=== PATIENT | female | born 1945 | race Caucasian/White ===

== ENCOUNTER → 2017-12-04 10:23 | Outpatient (CLI) | payer MEDICARE, SELFPAY ==
[2017-12-04 11:03] LABS: Add Manual Diff / Slide Review NO; Basophils Percent Auto 1.1 % (0-2); Eosinophils Percent Auto 2.1 % (2-4); Hematocrit 40.4 % (36-46); Hemoglobin 13.7 g/dL (12.0-16.0); Lymphocytes Percent Auto 42.3 % (25-40); Mean Corpuscular HGB Conc 33.9 % (30-36); Mean Corpuscular Hemoglobin 32.2 PG (26-34); Neutrophils Absolute Auto 1700 /uL (3000-5900); Neutrophils Percent Auto 46.5 % (50-75); Platelet Count 228 X10^3/uL (150-400); Red Blood Cell Count 4.26 X10^6/uL (4.0-5.2); Red Cell Distribution Width 14.7 % (11.6-14.8); White Blood Cell Count 3.7 X10^3/uL (4.5-11.0)
[2017-12-04 11:35] LABS: Alanine Aminotransferase 86 IU/L (9-52); Albumin 4.9 g/dL (3.5-5.0); Albumin Globulin Ratio 1.8 (1.0-2.8); Alkaline Phosphatase 66 U/L (38-126); Aspartate Aminotransferase 44 IU/L (14-36); BUN Creatinine Ratio 21.4 (6-22); Bilirubin Total 0.9 mg/dL (0.2-1.3); Blood Urea Nitrogen 15 mg/dL (7-17); Calcium 9.7 mg/dL (8.4-10.2); Carbon Dioxide 31 mmol/L (22-32); Chloride 105 mmol/L (98-107); Cholesterol 190 mg/dL (140-199); Estimated Glomerular Filt Rate > 60.0 mL/min (>60); Globulin 2.8 g/dL (1.7-4.1); Glucose 121 mg/dL (80-110); HDL Cholesterol 38 mg/dL (40-60); HEMOLYSIS 16 (0-50); LDL Cholesterol Calculated 93 mg/dL (<100); Potassium 4.9 mmol/L (3.4-5.1); Sodium 147 mmol/L (137-145); Total Protein 7.7 g/dL (6.3-8.2); Triglycerides 293 mg/dL (35-150)
[2017-12-04 11:49] LABS: Vitamin D 25 Hydroxy (D3) 72.7 ng/mL (30.0-100.0)
[2017-12-04 12:02] LABS: TSH w/ Reflex to FT4 1.86 uIU/mL (0.47-4.68)
== END ==
PROVIDERS: PCP Student in an Organized Health Care Education/Training Program; Visit Provider Student in an Organized Health Care Education/Training Program
DX: E55.9 Vitamin D deficiency, unspecified (principal); D70.4 Cyclic neutropenia; M35.9 Systemic involvement of connective tissue, unspecified; N39.0 Urinary tract infection, site not specified; E03.9 Hypothyroidism, unspecified; E78.5 Hyperlipidemia, unspecified
CPT/HCPCS: 36415; 80053; 80061; 82306; 84443; 85025

== ENCOUNTER → 2018-08-02 09:15 | Outpatient (CLI) | payer MEDICARE, SELFPAY ==
--- NOTE | 2018-08-02 09:18 | DI.MG.S_ITS ---
BILATERAL DIGITAL SCREENING MAMMOGRAM 3D/2D WITH CAD: 08/02/2018 CLINICAL: Routine screening. Family history of breast cancer. Comparison is made to exams dated: 12/16/2016 mammogram, 12/15/2015 mammogram, 12/26/2014 mammogram, 08/23/2013 mammogram, 08/17/2012 mammogram, and 08/04/2011 mammogram - [facility]. There are scattered fibroglandular elements in both breasts. Current study was also evaluated with a Computer Aided Detection (CAD) system. There is a 0.5 cm oval focal asymmetry in the lower inner right breast near 3 o'clock position anterior depth. There are bilateral secretory calcifications. There are circular mole markers overlying the right breast. No other significant masses, calcifications, or other findings are seen in either breast. IMPRESSION: INCOMPLETE: NEEDS ADDITIONAL IMAGING EVALUATION The 0.5 cm oval focal asymmetry in the lower inner right breast near 3 o'clock position anterior depth is indeterminate. Additional views with possible ultrasound are recommended. This exam was interpreted at Station ID: [id number]. NOTE: For mammograms, a report in lay terms will be sent to the patient. Approximately 15% of breast malignancies will not be visualized mammographically. In the management of a palpable breast mass, a negative mammogram must not discourage biopsy of a clinically suspicious lesion. Electronically Signed By: Toney Hurtado M.D. ecl/:08/02/2018 17:15:35 letter sent: Additional Imaging Needed ACR BI-RADS Category 0: Incomplete 3340F
== END ==
PROVIDERS: PCP Student in an Organized Health Care Education/Training Program; Visit Provider Student in an Organized Health Care Education/Training Program
DX: Z12.31 Encounter for screening mammogram for malignant neoplasm of breast (principal); Z80.3 Family history of malignant neoplasm of breast
CPT/HCPCS: 77063; 77067

== ENCOUNTER → 2018-08-22 12:49 | Outpatient (CLI) | payer MEDICARE, SELFPAY ==
--- NOTE | 2018-08-22 | DI.MG.S_ITS ---
UNILATERAL RIGHT DIGITAL DIAGNOSTIC MAMMOGRAM 3D/2D WITH ADDITIONAL VIEWS: 08/22/2018 CLINICAL: Additional evaluation requested from prior study. Comparison is made to exams dated: 08/02/2018 mammogram, 12/16/2016 mammogram, and 12/15/2015 mammogram - [facility]. There are scattered fibroglandular elements in right breast. There is 0.5 cm oval low density mass with a circumscribed margin in the right breast at 3 o'clock anterior depth. No other significant masses or calcifications are seen in the breast. IMPRESSION: INCOMPLETE: NEEDS ADDITIONAL IMAGING EVALUATION The 0.5 cm oval low density mass in the right breast is indeterminate. An ultrasound is recommended. This exam was interpreted at Station ID: [id number]. NOTE: For mammograms, a report in lay terms will be sent to the patient. Approximately 15% of breast malignancies will not be visualized mammographically. In the management of a palpable breast mass, a negative mammogram must not discourage biopsy of a clinically suspicious lesion. Electronically Signed By: Joce stewart/ivelisse:08/22/2018 13:35:33 ACR BI-RADS Category 0: Incomplete 3340F
--- NOTE | 2018-08-22 12:52 | DI.US.S_ITS ---
LIMITED ULTRASOUND OF RIGHT BREAST: 08/22/2018 CLINICAL: Patient returns today to evaluate a focal asymmetry in the right breast. Comparison is made to exams dated: 08/22/2018 mammogram, 08/02/2018 mammogram, 12/16/2016 mammogram, and 12/15/2015 mammogram - [facility]. Color flow and real-time ultrasound of the right breast 3 o'clock region were performed on the areas of interest. There is 0.4 cm x 0.4 cm x 0.4 cm oval mass with a circumscribed margin in the right breast at 3 o'clock middle depth. This oval mass is hypoechoic with a well-defined boundary. This correlates with mammography findings. Color flow imaging demonstrates that there is vascularity present. IMPRESSION: SUSPICIOUS OF MALIGNANCY The 0.4 cm x 0.4 cm x 0.4 cm oval mass in the right breast is at a low suspicion for malignancy. An ultrasound guided biopsy is recommended. The findings were discussed with the patient at the conclusion of the study by Dr. Ng. This exam was interpreted at Station ID: [id number]. Electronically Signed By: Joce stewart/:08/22/2018 17:19:46 letter sent: Biopsy Required Ultrasound BI-RADS: 4a Suspicious abnormality - low suspicion for malignancy
== END ==
PROVIDERS: PCP Student in an Organized Health Care Education/Training Program; Visit Provider Student in an Organized Health Care Education/Training Program
DX: R92.8 Other abnormal and inconclusive findings on diagnostic imaging of breast (principal); N63.10 Unspecified lump in the right breast, unspecified quadrant
CPT/HCPCS: 76642; 77065; G0279

== ENCOUNTER → 2018-09-12 13:09 | Outpatient (CLI) | payer MEDICARE, SELFPAY ==
--- NOTE | 2018-09-12 | DI.MG.S_ITS ---
UNILATERAL RIGHT DIGITAL DIAGNOSTIC MAMMOGRAM POST-NEEDLE BIOPSY: 09/12/2018 CLINICAL: Post right breast ultrasound biopsy clip placement imaging. Comparison is made to exams dated: 08/22/2018 mammogram and 08/02/2018 mammogram - [facility]. There are scattered fibroglandular elements in right breast. Post-biopsy marker on the right is in expected position. IMPRESSION: POST PROCEDURE MAMMOGRAM FOR MARKER PLACEMENT Vision marker clip in expected position on the right after US guided biopsy earlier today. This exam was interpreted at Station ID: [id number]. NOTE: For mammograms, a report in lay terms will be sent to the patient. Approximately 15% of breast malignancies will not be visualized mammographically. In the management of a palpable breast mass, a negative mammogram must not discourage biopsy of a clinically suspicious lesion. Electronically Signed By: Spike Ochoa M.D. [facility]/:09/17/2018 09:43:21 ACR BI-RADS Category Post-procedure mammogram for marker placement
--- NOTE | 2018-09-12 | PATH_ITS ---
[facility] Accession Number: [id number] . 01 Material submitted: . breast - RIGHT BREAST MASS 3:00 2 CM FN . 02 Diagnosis: Right Breast Mass at 3 o'clock, 2 cm from Nipple: Fragments of atypical papilloma; please see comment. . MRV/09/17/2018 . 02 Comment: Histologic sections demonstrate disrupted portions of papilloma with a minute focus (less than 0.5 mm, a small region of one ductule) of atypical ductal hyperplasia; surgical extirpation is recommended, if clinically appropriate. . This case was reviewed by my colleagues, Drs. Perez and Ella. . These results were discussed with Genaro, triage nurse, on 09/17/2018 at approximately 12:45 p.m. . 02 Electronically signed: . Rayna Varela MD, Pathologist NPI- [id number] . 01 Gross description: . Received one formalin-filled container labeled with the patient's name and designated right breast mass 3 o'clock 2 cm FN. The specimen is received with a plastic filter, sample loose in container. The specimen consists of multiple portions of tissue and blood which measure 2.0 x 0.6 x 0.3 cm in aggregate. All fragments are totally submitted in one cassette. Collection date: 09/12/2018. Collection time per container: 2:00 p.m. Total fixation time: 12 hours, up to 24. ([id number]) /FRR . 02 Microscopic: . Immunostains were performed on block A1 with the following results. Controls showed appropriate reactivity. . ER: Strong, uniform staining in region of interest. CK 5/6: Diminished to absent staining in region of interest. E-cadherin: Uniformly positive in region of interest. . The region of interest is immunopositive for both ER and E-cadherin and demonstrates diminished / absent staining for CK5/6. 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 . * This test was developed and its performance characteristics determined by [facility]. It has not been cleared or approved by the U.S. Food and Drug Administration. The FDA has determined that such clearance or approval is not necessary. This test is used for clinical purposes. It should not be regarded as investigational or for research. . 02 Pathologist provided ICD-10: D24.9 . 02 CPT . 875285, J80744, K21470 Performed at: 01 [facility] [address], [place], [place] [id number] MD Joce Glass MD Phone: [phone] Performed at: 02 [facility] [address] [place], [place] [id number] MD Jessica Jaramillo MD Phone: [phone]
--- NOTE | 2018-09-12 13:10 | DI.US.S_ITS ---
ULTRASOUND GUIDED BIOPSY RIGHT BREAST USING VACUUM DEVICE WITH MARKING DEVICE INSERTED AND POST DIGITAL MAMMOGRAPHIC AND ULTRASOUND IMAGIN09/12/2018 CLINICAL: Right breast mass. PATIENT CONSENT: Risks (minor bleeding, infection, vasovagal reaction and repeat procedure), benefits and alternatives were explained to the patient and written informed consent was obtained. Correlation is made to exams dated: 08/22/2018 ultrasound, 08/22/2018 mammogram, 08/02/2018 mammogram, 12/16/2016 mammogram, 12/15/2015 mammogram, and 12/26/2014 mammogram - [facility]. An ultrasound guided biopsy using real-time ultrasound was performed for the concerning 0.4 cm x 0.4 cm x 0.4 cm circumscribed round mass located in the right breast at 3 o'clock anterior depth. This was described on the previous ultrasound report. The skin was prepped in the usual manner. Local anesthetic was administered to the access site. A skin joann was made in the breast. The abnormality was approached from the lateral aspect. A 13 gauge biopsy needle was placed adjacent to the abnormality under ultrasound guidance. Once the needle was documented to be in the correct location, four specimens were obtained using the Mammotome biopsy system. The patient received additional local anesthetic during the procedure. A Vision clip was inserted into the biopsy cavity. A skin closure strip and a sterile dressing were applied to the access site. Post procedure digital mammographic and ultrasound imaging demonstrates the location device at the targeted area and partial removal of the abnormality. The specimens were sent to the laboratory for pathological analysis. IMPRESSION: ULTRASOUND GUIDED BIOPSY HIGH RISK BENIGN Ultrasound guided biopsy of the 0.4 cm x 0.4 cm x 0.4 cm mass in the right breast at 3 o'clock anterior depth was successful. 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 Pathology results are concordant with imaging findings. A surgical consultation and a surgical excision are recommended. This exam was interpreted at Station ID: [id number]. Spike Benito M.D. [facility]/:09/18/2018 11:03:05
== END ==
PROVIDERS: PCP Student in an Organized Health Care Education/Training Program; Visit Provider Student in an Organized Health Care Education/Training Program
DX: D24.1 Benign neoplasm of right breast (principal)
CPT/HCPCS: 19083; 77065; 88305; 88341; 88342

== ENCOUNTER → 2018-09-19 09:06 | Outpatient (CLI) | payer MEDICARE, SELFPAY ==
[2018-09-19 09:35] LABS: Bacteria Urine None Seen; RBC Urine None Seen (0-5/HPF)
[2018-09-19 09:52] LABS: Appearance Urine UA CLEAR; Bilirubin Urine UA NEGATIVE (NEGATIVE); Color Urine UA YELLOW; Glucose Urine UA NEGATIVE (Negative); Ketones Urine UA NEGATIVE (NEGATIVE); Leukocyte Esterase Urine UA 3+ (NEGATIVE); Nitrite Urine UA NEGATIVE (Negative); Occult Blood Urine UA NEGATIVE (Negative); Protein Urine UA NEGATIVE (Negative); Urobilinogen Urine UA 0.2 E.U./dL (0.2)
[2018-09-19 10:01] LABS: Culture Indicated Urine Specimen Cultured; WBC Urine 5-10/HPF (0-5/HPF)
== END ==
PROVIDERS: PCP Student in an Organized Health Care Education/Training Program; Visit Provider Student in an Organized Health Care Education/Training Program
DX: R30.0 Dysuria (principal)
CPT/HCPCS: 81001; 87086

== ENCOUNTER → 2018-10-26 09:01 | Outpatient (CLI) | payer MEDICARE, SELFPAY ==
[2018-10-26 09:34] LABS: Add Manual Diff / Slide Review NO; Basophils Absolute Auto 0 /uL (0-100); Basophils Percent Auto 1.1 % (0-2); Eosinophils Absolute Auto 100 /uL (0-450); Eosinophils Percent Auto 2.3 % (2-4); Hematocrit 38.3 % (36-46); Lymphocytes Absolute Auto 1900 /uL (1100-4500); Lymphocytes Percent Auto 47.8 % (25-40); Mean Corpuscular HGB Conc 33.8 % (30-36); Mean Corpuscular Hemoglobin 32.3 PG (26-34); Mean Corpuscular Volume 95.5 fL (80-100); Monocytes Absolute Auto 300 /uL (0-900); Monocytes Percent Auto 8.2 % (3-14); Neutrophils Absolute Auto 1600 /uL (1500-7000); Neutrophils Percent Auto 40.6 % (50-75); Platelet Count 232 X10^3/uL (150-400); Red Blood Cell Count 4.01 X10^6/uL (4.0-5.2); Red Cell Distribution Width 15.3 % (11.6-14.8); White Blood Cell Count 3.9 X10^3/uL (4.5-11.0)
[2018-10-26 10:04] LABS: Alanine Aminotransferase 69 IU/L (9-52); Albumin 4.5 g/dL (3.5-5.0); Albumin Globulin Ratio 1.7 (1.0-2.8); Alkaline Phosphatase 69 U/L (38-126); Aspartate Aminotransferase 30 IU/L (14-36); BUN Creatinine Ratio 26.7 (6-22); Bilirubin Total 0.8 mg/dL (0.2-1.3); Blood Urea Nitrogen 16 mg/dL (7-17); Calcium 9.6 mg/dL (8.4-10.2); Carbon Dioxide 27 mmol/L (22-32); Chloride 105 mmol/L (98-107); Estimated Glomerular Filt Rate > 60.0 mL/min (>60); Globulin 2.6 g/dL (1.7-4.1); Glucose 122 mg/dL (80-110); HEMOLYSIS < 15 (0-50); Potassium 4.7 mmol/L (3.4-5.1); Sodium 141 mmol/L (137-145); Total Protein 7.1 g/dL (6.3-8.2)
[2018-10-26 10:21] LABS: Vitamin D 25 Hydroxy (D3) 63.1 ng/mL (30.0-100.0)
[2018-10-26 10:35] LABS: TSH w/ Reflex to FT4 2.76 uIU/mL (0.47-4.68)
== END ==
PROVIDERS: Family Provider Student in an Organized Health Care Education/Training Program; PCP Student in an Organized Health Care Education/Training Program; Visit Provider Internal Medicine Hematology & Oncology
DX: D24.1 Benign neoplasm of right breast (principal); N60.91 Unspecified benign mammary dysplasia of right breast; E66.9 Obesity, unspecified; E78.5 Hyperlipidemia, unspecified; G35 Multiple sclerosis; I10 Essential (primary) hypertension; R94.5 Abnormal results of liver function studies; E03.9 Hypothyroidism, unspecified; E55.9 Vitamin D deficiency, unspecified
CPT/HCPCS: 36415; 80053; 82306; 84443; 85025

== ENCOUNTER → 2018-11-13 14:07 | Outpatient (CLI) | payer MEDICARE, SELFPAY ==
--- NOTE | 2018-11-13 | DI.US.S_ITS ---
PROCEDURE: US RENAL COMPLETE INDICATIONS: NEUROGENIC BLADDER TECHNIQUE: Real-time scanning was performed of the kidneys and bladder, with image documentation. COMPARISON: [facility], , PELVIC COMPLETE, 02/19/2008, 10:32. FINDINGS: Kidneys: Kidneys are normal in size. Right kidney measures 10.8 cm long; left kidney measures 11.5 cm long. Right renal cortical thickness is 2.0 cm; left renal cortical thickness is 2.1 cm. Renal cortical echotexture is normal. No hydronephrosis or nephrolithiasis. No suspicious solid mass lesions. Bladder: Pre-void bladder volume is 162 mL. Post-void residual is 80 mL. Pre-void images demonstrate no intraluminal masses or stones. On pre-void images, neither ureteral jets are noted with color Doppler interrogation. (Of note, ureteral jets may not be detectable in up to 25% of cases due to insufficient differences in specific gravity between ureteral and bladder urine). Miscellaneous: No free pelvic fluid. IMPRESSION: 1. Grossly normal appearance of the kidneys. 2. 80 cc post void residual. Dictated by: Sam MC Interpreted: Eliz Ayon MD on 11/13/2018 at 15:27 Approved by: Eliz Ayon M.D. on 11/13/2018 at 15:59
== END ==
PROVIDERS: PCP Student in an Organized Health Care Education/Training Program; Visit Provider Urology
DX: N31.9 Neuromuscular dysfunction of bladder, unspecified (principal)
CPT/HCPCS: 76770

== ENCOUNTER → 2019-09-18 12:55 | Outpatient (CLI) | payer MEDICARE, SELFPAY ==
[2019-10-31 09:32] LABS: BUN Creatinine Ratio 23.5 (6-22); Blood Urea Nitrogen 12 mg/dL (7-17); Calcium 9.4 mg/dL (8.4-10.2); Carbon Dioxide 22 mmol/L (22-32); Chloride 109 mmol/L (98-107); Estimated Glomerular Filt Rate > 60.0 mL/min (>60); Glucose 124 mg/dL (80-110); HEMOLYSIS 24 (0-50); Potassium 4.7 mmol/L (3.4-5.1); Sodium 139 mmol/L (137-145)
[2019-10-31 10:02] LABS: TSH w/ Reflex to FT4 3.37 uIU/mL (0.47-4.68)
== END ==
PROVIDERS: PCP Student in an Organized Health Care Education/Training Program; Referring Provider Student in an Organized Health Care Education/Training Program; Visit Provider Student in an Organized Health Care Education/Training Program
DX: N39.0 Urinary tract infection, site not specified (principal)
CPT/HCPCS: 80048; 84443; 87077; 87086; 87186

== ENCOUNTER → 2019-12-19 15:33 | Outpatient (CLI) | payer MEDICARE, SELFPAY ==
--- NOTE | 2019-12-19 15:36 | DI.RAD.S_ITS ---
PROCEDURE: XR ABDOMEN 1V INDICATIONS: Abdominal bloating TECHNIQUE: One view of the abdomen acquired. COMPARISON: [facility], CT, ABDOMEN/PELVIS WITH CONTRAST, 06/30/2016, 15:31. [facility], CR, ABDOMEN ACUTE SERIES, 06/30/2016, 12:00. [facility], CR, ABDOMEN 1 VIEW, 07/08/2016, 6:05. FINDINGS: Surgical changes and devices: None. Bowel: There is persistent gaseous distention of much of the colon, predominantly within the upper abdomen where the colon measures up to 10.5 cm with air seen in the colon down to the level of the sigmoid where no definitive gas filled bowel seen. No definite small bowel dilatation is seen. No pneumatosis or bowel wall thickening. Soft tissues: No suspicious abdominal calcifications. Visualized solid organ contours appear normal in size. Bones: No suspicious bony lesions. IMPRESSION: Persistent gaseous distension of the colon to the level of the sigmoid where no definitive gas is seen. Sigmoid stricture cannot entirely be excluded. If indicated, CT could be performed for further assessment. Dictated by: Sam RODRIGUEZ Interpreted: Spike Ochoa MD on 12/19/2019 at 17:00 Approved by: Spike Ochoa M.D. on 12/20/2019 at 9:41
== END ==
PROVIDERS: PCP Student in an Organized Health Care Education/Training Program; Referring Provider Student in an Organized Health Care Education/Training Program; Visit Provider Student in an Organized Health Care Education/Training Program
DX: R14.0 Abdominal distension (gaseous) (principal)
CPT/HCPCS: 74018

== ENCOUNTER → 2020-03-27 10:14 | Outpatient (CLI) | payer MEDICARE, OTHER, SELFPAY ==
--- NOTE | 2020-03-27 | DI.MG.S_ITS ---
BILATERAL DIGITAL SCREENING MAMMOGRAM 3D/2D WITH CAD: 03/27/2020 CLINICAL: Routine screening. Family history of breast cancer. Comparison is made to exams dated: 08/22/2018 mammogram, 08/02/2018 mammogram, and 12/16/2016 mammogram - [facility]. There are scattered fibroglandular elements in both breasts. Current study was also evaluated with a Computer Aided Detection (CAD) system. There are benign calcifications in both breasts. There also are benign post operative findings in the right breast. No significant masses, calcifications, or other findings are seen in either breast. There has been no significant interval change. IMPRESSION: BENIGN There is no mammographic evidence of malignancy. A 1 year screening mammogram is recommended. This exam was interpreted at Station ID: [id number]. NOTE: For mammograms, a report in lay terms will be sent to the patient. Approximately 15% of breast malignancies will not be visualized mammographically. In the management of a palpable breast mass, a negative mammogram must not discourage biopsy of a clinically suspicious lesion. Electronically Signed By: Dorys mattson/ivelisse:03/30/2020 11:32:58 letter sent: Normal Exam ACR BI-RADS Category 2: Benign Finding(s) 3342F
== END ==
PROVIDERS: PCP Student in an Organized Health Care Education/Training Program; Referring Provider Student in an Organized Health Care Education/Training Program; Visit Provider Student in an Organized Health Care Education/Training Program
DX: Z12.31 Encounter for screening mammogram for malignant neoplasm of breast (principal); Z80.3 Family history of malignant neoplasm of breast
CPT/HCPCS: 77063; 77067

== ENCOUNTER → 2020-04-08 13:39 | Outpatient (CLI) | payer MEDICARE, OTHER, SELFPAY ==
[2020-04-08] MEDS: COVID-19 VACC #1, MRNA(MOD) 100 MCG/0.5 ML VIAL IM (13:45)
== END ==
PROVIDERS: PCP Student in an Organized Health Care Education/Training Program; Visit Provider Internal Medicine
DX: Z23 Encounter for immunization (principal)
CPT/HCPCS: 0011A; 91301

== ENCOUNTER → 2020-05-06 13:23 | Outpatient (CLI) | payer MEDICARE, OTHER, SELFPAY ==
[2020-05-06] MEDS: COVID-19 VACC #2, MRNA(MOD) 100 MCG/0.5 ML VIAL IM (13:31)
== END ==
PROVIDERS: PCP Student in an Organized Health Care Education/Training Program; Visit Provider Internal Medicine
DX: Z23 Encounter for immunization (principal)
CPT/HCPCS: 0012A; 91301

== ENCOUNTER → 2020-09-03 11:09 | Outpatient (ROUT) | payer MEDICARE, OTHER, SELFPAY ==
[2020-09-03 11:11] LABS: Bacteria Urine None Seen
[2020-09-03 11:26] LABS: Appearance Urine UA SL CLOUDY; Bilirubin Urine UA NEGATIVE (NEGATIVE); Color Urine UA YELLOW; Glucose Urine UA NEGATIVE (Negative); Ketones Urine UA NEGATIVE (NEGATIVE); Leukocyte Esterase Urine UA 1+ (NEGATIVE); Nitrite Urine UA NEGATIVE (Negative); Occult Blood Urine UA 3+ (Negative); Protein Urine UA 2+ (Negative); Specific Gravity Urine UA 1.015 (1.000-1.035); Urobilinogen Urine UA 0.2 E.U./dL (0.2)
[2020-09-03 11:44] LABS: Culture Indicated Urine Cult Not Indicated; RBC Urine 10-30/HPF (0-5/HPF); Renal Epithelial Cells Urine 5-10/HPF (0-1/HPF); Squamous Epithelial Cell Urine 5-10 /HPF (0-5/HPF); WBC Urine 5-10/HPF (0-5/HPF)
== END ==
PROVIDERS: PCP Student in an Organized Health Care Education/Training Program; Visit Provider Student in an Organized Health Care Education/Training Program
DX: N39.0 Urinary tract infection, site not specified (principal)
CPT/HCPCS: 81001; 87077; 87086; 87186

== ENCOUNTER 2020-11-10 11:00 | Outpatient (RCR) | payer OTHER, MEDICARE, SELFPAY ==
--- NOTE | 2020-11-10 12:18 | OT.OP.EVAL ---
Visit Care Team Role Provider Type Cristopher Olmos MD Attending Provider Physician Primary Care Provider Referring Provider Specialty: Internal Medicine Address: [address] [place] [address], [address], [address] Email: [email or web address] Yasmin Lutz seen in clinic with her Clifford for PWC evaluation with Monserrat LWA. Patient presented in [place] [id number] with documents to be scanned into chart and letter of medical necessity completed via [employer].
== END 2020-11-25 14:07 ==
LOC: OT 11:00
PROVIDERS: PCP Student in an Organized Health Care Education/Training Program; Referring Provider Student in an Organized Health Care Education/Training Program; Visit Provider Student in an Organized Health Care Education/Training Program
DX: G35 Multiple sclerosis (principal)
CPT/HCPCS: 97166; 97530

== ENCOUNTER → 2020-11-30 10:37 | Outpatient (CLI) | payer MEDICARE, OTHER, SELFPAY ==
[2020-11-30 12:51] LABS: Hemoglobin A1C% w Est Avg Glu 5.4 % (4.0-6.0)
[2020-11-30 13:00] LABS: Blood Urea Nitrogen 12 mg/dL (7-17); Calcium 9.6 mg/dL (8.4-10.2); Carbon Dioxide 28 mmol/L (22-32); Chloride 103 mmol/L (98-107); Estimated Glomerular Filt Rate > 60.0 mL/min (>60); Glucose 119 mg/dL (80-110); HEMOLYSIS < 15 (0-50); Potassium 4.8 mmol/L (3.4-5.1); Sodium 139 mmol/L (137-145)
== END ==
PROVIDERS: PCP Student in an Organized Health Care Education/Training Program; Referring Provider Student in an Organized Health Care Education/Training Program; Visit Provider Student in an Organized Health Care Education/Training Program
DX: R73.03 Prediabetes (principal); I10 Essential (primary) hypertension
CPT/HCPCS: 36415; 80048; 83036

== ENCOUNTER 2021-07-23 17:40 | Emergency (ER) | payer MEDICARE, OTHER, SELFPAY ==
[2021-07-23] VITALS (8 sets, daily range): BP systolic 166–198; BP diastolic 73–86; PULSE 87–96; RESP 15–18; TEMP 36.4; O2SAT 94–97; BMI 32.1
--- NOTE | 2021-07-23 18:22 | ED.FEMALEGU ---
HPI - Female Genitourinary General Chief complaint: Vaginal Bleeding Stated complaint: vaginal bleeding Time Seen by Provider: 07/23/21 17:58 Source: patient Mode of arrival: EMS History of Present Illness HPI Narrative: 76-year-old female nonsmoker is bedbound with MS and presents with her with a chief complaint of painless vaginal bleeding noted today when performing self-care. She denies any pain or systemic findings such as dizziness, weakness, lightheadedness. She takes no blood thinners, only baby aspirin. She has had no abdominal or pelvic surgeries in the past and denies any history of bleeding. She denies any injury or trauma. She has a Sanabria catheter in place and there have been no changes or other procedures for least the past 3 weeks. She denies chest pain or shortness of breath. Related Data Home Medications Medication Instructions Recorded Confirmed ASPIRIN (#ASPIR 81) 81 mg PO Q DAY #0 07/21/11 11/30/20 CA PANTOTHENATE/FOLIC ACID/VIT 1 tab PO Q DAY #0 07/21/11 11/30/20 (MULTIVITAMIN) polyethylene glycol 3350 17 17 gm PO PRN #0 07/21/11 11/30/20 gram/dose oral powder (Miralax) Fish Oil (#OMEGA-3 FISH OIL) 1,200 mg PO QDAY #0 10/26/11 11/30/20 cholecalciferol (vitamin D3) 50 2,000 iu PO QDAY #30 10/26/11 11/30/20 mcg (2,000 unit) capsule (Vitamin D3) Previous Rx's Medication Instructions Recorded oxybutynin chloride 5 mg tablet 5 mg PO BIDAC #90 tab 07/05/18 atorvastatin 40 mg tablet (Lipitor) 40 mg PO Q DAY #90 tab 11/05/20 levothyroxine 50 mcg tablet 50 mcg PO QAM #90 tab 11/05/20 metoprolol tartrate 25 mg tablet 25 mg PO BID #180 tab 01/12/21 baclofen 10 mg tablet 20 mg PO QDAY #180 tab 02/22/21 sulfamethoxazole 400 1 tab PO QDAY #90 tab 02/22/21 mg-trimethoprim 80 mg tablet mupirocin 2 % topical ointment See Rx Instructions .ROUTE 04/21/21 .COMPLEX #30 gram Allergies Allergy/AdvReac Type Severity Reaction Status Date / Time No Known Drug Allergies Allergy Verified 07/23/21 17:41 Review of Systems Review of Systems Narrative: GENERAL: Denies chills, fatigue, malaise, fever, sweats. HEENT: Denies sinus pain, ear pain, sore throat, difficulty swallowing, dizziness. RESPIRATORY: Denies dyspnea, cough, wheezing, hemoptysis, sputum. CARDIOVASCULAR: Denies chest pain, palpitations, orthopnea, edema, GASTROINTESTINAL: Denies nausea, vomiting, abdominal pain, diarrhea, constipation, melena. : See HP MUSCULOSKELETAL: denies weakness, joint pain, or bony pain SKIN: Denies rash, skin lesions, or other NEUROLOGIC: Denies weakness, headache, numbness, change in speech, confusion, seizures, incoordination. PSYCHIATRIC: No concerning psychosocial issues. 12 point review of systems is negative except for those stated above Patient History Medical History (Updated 07/23/21 @ 21:48 by Main Rachel DO) Chickenpox Chronic constipation Femur fracture, left (08/2014) Frequent UTI (1967) Hx of staphylococcal infection (2014) Hyperlipidemia Hypertension Hypothyroidism Measles Multiple sclerosis (1977) Mumps Shoulder pain Small bowel obstruction Urinary incontinence (~1999) Surgical History (Updated 07/11/17 @ 06:20 by Conversion Provider) Status post colonoscopy Status post cone biopsy of cervix Status post loop electrosurgical excision procedure (LEEP) of cervix Family History (Updated 11/27/17 @ 11:14 by Lois Cummings LPN) Brother Stroke Child Age: 51 Hypertension High cholesterol Sister Age: 85 Breast cancer Sister Age: 48 High cholesterol Father Cancer Mother No problems noted. alcohol intake frequency: holidays/special occasions only Substance Use Type: does not use Exam Narrative Exam Narrative: GENERAL: [76] year old patient appears stated age. Well-developed patient, in mild distress. HEAD: Atraumatic. Normocephalic. EYES: Pupils equal round and reactive. Extraocular motions intact. No scleral icterus. No injection or drainage. ENT: Nose without bleeding, purulent drainage. Throat without erythema, tonsillar hypertrophy or exudate. Airway patent. NECK: Trachea midline. Non tender CARDIOVASCULAR: Regular rate and rhythm without murmurs, gallops, or rubs. RESPIRATORY: Clear to auscultation. Breath sounds equal bilaterally. No wheezes, rales, or rhonchi. GASTROINTESTINAL: Abdomen soft, non-tender, nondistended. PELVIC: Performed with 2 female nursing insurance verification specialist, patient's significant other at the bedside and patient's permission. Very small amount of bleeding from a small lesion in the inferior region of the vaginal wall, also a very small amount of bleeding from the skin around the external urethral meatus. EXTREMITIES: No edema or joint tenderness. BACK: Nontender without deformity or crepitance. No flank tenderness. NEURO: AOx3. SKIN: No rash or erythema of visible areas Initial Vital Signs Initial Vital Signs: Vital Signs Temperature 97.5 F L 07/23/21 17:36 Pulse Rate 89 07/23/21 17:36 Respiratory Rate 15 07/23/21 17:36 Blood Pressure 198/86 H 07/23/21 17:36 Pulse Oximetry 97 07/23/21 17:36 Course Orders Ordered: ED Orders 07/23/21 18:00 BMP [Basic Metabolic Panel] Stat CBC Auto Diff [Complete Blood Count AUTO DIFF] Stat 07/23/21 18:26 US pelvic complete Stat Consultations Consultation #1: Dr. Layne consulted regarding history and physical. She will see patient at the bedside. Vital Signs Vital signs: Vital Signs - 8 hr 07/23/21 18:25 07/23/21 18:26 07/23/21 18:30 Pulse Rate 96 H 93 H 95 H Respiratory Rate 18 Blood Pressure 188/86 H 180/75 H Pulse Oximetry 94 95 95 07/23/21 19:00 07/23/21 19:01 07/23/21 19:30 Pulse Rate 93 H 87 88 Respiratory Rate Blood Pressure 167/73 H 166/74 H Pulse Oximetry 95 95 95 07/23/21 23:21 Pulse Rate 90 Respiratory Rate 18 Blood Pressure 171/74 H Pulse Oximetry 95 MDM - Female Genitourinary Lab Data Result diagrams: 07/23/21 18:00 07/23/21 18:00 Labs: Lab Results 07/23/21 07/23/21 Range/Units 18:00 18:00 WBC 6.5 (4.5-11.0) X10^3/uL RBC 4.00 (4.0-5.2) X10^6/uL Hgb 12.5 (12.0-16.0) g/dL Hct 36.8 (36-46) % MCV 92.1 (80-100) fL MCH 31.4 (26-34) PG MCHC 34.0 (30-36) % RDW 15.4 H (11.6-14.8) % Plt Count 323 (150-400) X10^3/uL Neut % (Auto) 60.3 (50-75) % Lymph % (Auto) 29.8 (25-40) % Forest % (Auto) 7.6 (3-14) % Eos % (Auto) 1.6 L (2-4) % Baso % (Auto) 0.7 (0-2) % Neut # (Auto) 3900 (9432-5265) /uL Lymph # (Auto) 1900 (8253-8049) /uL Forest # (Auto) 500 (0-900) /uL Eos # (Auto) 100 (0-450) /uL Baso # (Auto) 0 (0-100) /uL Sodium 138 (137-145) mmol/L Potassium 4.3 (3.4-5.1) mmol/L Chloride 101 (98-107) mmol/L Carbon Dioxide 26 (22-32) mmol/L BUN 9 (7-17) mg/dL Creatinine 0.51 L (0.52-1.04) mg/dL Estimated GFR > 60 (>60) mL/min BUN/Creatinine Ratio 17.6 (6-22) Glucose 122 H (80-110) mg/dL Calcium 9.0 (8.4-10.2) mg/dL Imaging Data 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 Procedure: US pelvic complete Ordering Provider: Main Rachel D.O. PROCEDURE:? US PELVIC COMPLETE ? INDICATIONS:? BLEEDING ? TECHNIQUE:? Real-time scanning was performed of the pelvic organs, with image documentation.? Additional endovaginal scanning was necessary due to incomplete visualization of the adnexal and endometrial structures by transabdominal scanning.? ? COMPARISON:? None. ? FINDINGS:? ?? Uterus:? Uterus is anteverted and measures 5.5 x 3.1 x 3.1 cm. The endometrium measures 0.4 cm in combined thickness.? No associated internal vascularity within the endometrium or discrete mass visualized.? The myometrium is heterogeneous with areas of shadowing which may reflect calcified myometrial vessels.? ? Ovaries:? The ovaries were not discretely visualized.? No adnexal masses identified. ? Other:? No pathologic free abdominal or pelvic fluid. ? ? IMPRESSION:? ? 1. Endometrial thickness appears within normal limits.? No discrete endometrial mass or increased vascularity identified.? If clinical concern persists, further evaluation may be obtained with MRI or hysteroscopy. ? 2. Ovaries not visualized.? No adnexal mass identified.? ? ? We strive to produce accurate, complete, and clear reports of imaging services. To assist us in improving patient care, this report was composed using standard report templates and voice recognition software. Therefore, it may contain abnormal punctuation, insertions and/or omissions. Occasional wrong-word or sound-alike substitutions may occur. Though we review the report and make efforts to correct it, we do recommend that the report be read carefully in proper context to recognize any text inaccuracies. ? ? Dictated by: Joce Gerard M.D. on 07/23/2021 at 21:27 ? ? Approved by: Joce Gerard M.D. on 07/23/2021 at 21:42 ? Discharge Plan Departure Patient Disposition: Home Clinical Impression: Abnormal vaginal bleeding Activity Restrictions/Additional Instructions: *You have been diagnosed with [vaginal bleeding. The lab work, physical exam and ultrasound are unremarkable *What to do: *Please continue to take your regular medications as directed. [ ] New medication prescriptions sent to your pharmacy: [ ] [ ] New medication written as a paper prescription [x ] No new medications given *Please follow up with your primary care provider in 2-3 days, call for an appointment. Let them know you were seen in the Emergency Department and that we ask that you be seen in follow up. We will electronically transmit a record of today's note if your PCP is in our system *Return to Emergency Department if you should have any new, worsening or concerning symptoms, such as [fever greater than 101 F, shaking chills, worsening pain, persistent vomiting or other bothersome symptoms] Prescriptions: No Action ASPIRIN (#ASPIR 81) 81 mg PO Q DAY Qty: 0 0RF CA PANTOTHENATE/FOLIC ACID/VIT (MULTIVITAMIN) 1 tab PO Q DAY Qty: 0 0RF polyethylene glycol 3350 [Miralax] 119 GM powder 17 gm PO PRN Qty: 0 0RF cholecalciferol (vitamin D3) [Vitamin D3] 2,000 UNIT capsule 2,000 iu PO QDAY Qty: 30 0RF Fish Oil (#OMEGA-3 FISH OIL) 1,200 mg PO QDAY Qty: 0 0RF levothyroxine 50 mcg tablet 50 mcg PO QAM Qty: 90 3RF atorvastatin [Lipitor] 40 mg tablet 40 mg PO Q DAY Qty: 90 3RF metoprolol tartrate 25 mg tablet 25 mg PO BID Qty: 180 3RF baclofen 10 mg tablet 20 mg PO QDAY Qty: 180 1RF sulfamethoxazole-trimethoprim 400-80 mg tablet 1 tab PO QDAY Qty: 90 1RF mupirocin 2 % ointment See Rx Instructions .ROUTE .COMPLEX Qty: 30 0RF Dose Instruction: APPLY TO THE AFFECTED AREA(S) TWICE DAILY Rx Instructions: APPLY TO THE AFFECTED AREA(S) TWICE DAILY oxybutynin chloride 5 mg tablet 5 mg PO BIDAC Qty: 90 3RF Referrals: Cristopher Olmos MD [Primary Care Provider] - Shawna Layne MD [Physician] -
--- NOTE | 2021-07-23 18:26 | DI.US.S_ITS ---
PROCEDURE: US PELVIC COMPLETE INDICATIONS: BLEEDING TECHNIQUE: Real-time scanning was performed of the pelvic organs, with image documentation. Additional endovaginal scanning was necessary due to incomplete visualization of the adnexal and endometrial structures by transabdominal scanning. COMPARISON: None. FINDINGS: Uterus: Uterus is anteverted and measures 5.5 x 3.1 x 3.1 cm. The endometrium measures 0.4 cm in combined thickness. No associated internal vascularity within the endometrium or discrete mass visualized. The myometrium is heterogeneous with areas of shadowing which may reflect calcified myometrial vessels. Ovaries: The ovaries were not discretely visualized. No adnexal masses identified. Other: No pathologic free abdominal or pelvic fluid. IMPRESSION: 1. Endometrial thickness appears within normal limits. No discrete endometrial mass or increased vascularity identified. If clinical concern persists, further evaluation may be obtained with MRI or hysteroscopy. 2. Ovaries not visualized. No adnexal mass identified. We strive to produce accurate, complete, and clear reports of imaging services. To assist us in improving patient care, this report was composed using standard report templates and voice recognition software. Therefore, it may contain abnormal punctuation, insertions and/or omissions. Occasional wrong-word or sound-alike substitutions may occur. Though we review the report and make efforts to correct it, we do recommend that the report be read carefully in proper context to recognize any text inaccuracies. Dictated by: Joce Gerard M.D. on 07/23/2021 at 21:27 Approved by: Joce Gerard M.D. on 07/23/2021 at 21:42
[2021-07-23 18:41] LABS: Add Manual Diff / Slide Review NO; Basophils Absolute Auto 0 /uL (0-100); Basophils Percent Auto 0.7 % (0-2); Eosinophils Absolute Auto 100 /uL (0-450); Eosinophils Percent Auto 1.6 % (2-4); Hematocrit 36.8 % (36-46); Hemoglobin 12.5 g/dL (12.0-16.0); Lymphocytes Absolute Auto 1900 /uL (1100-4500); Lymphocytes Percent Auto 29.8 % (25-40); Mean Corpuscular Hemoglobin 31.4 PG (26-34); Mean Corpuscular Volume 92.1 fL (80-100); Monocytes Absolute Auto 500 /uL (0-900); Monocytes Percent Auto 7.6 % (3-14); Neutrophils Absolute Auto 3900 /uL (1500-7000); Neutrophils Percent Auto 60.3 % (50-75); Platelet Count 323 X10^3/uL (150-400); Red Cell Distribution Width 15.4 % (11.6-14.8); White Blood Cell Count 6.5 X10^3/uL (4.5-11.0)
[2021-07-23 18:49] LABS: BUN Creatinine Ratio 17.6 (6-22); Blood Urea Nitrogen 9 mg/dL (7-17); Carbon Dioxide 26 mmol/L (22-32); Chloride 101 mmol/L (98-107); Estimated Glomerular Filt Rate > 60 mL/min (>60); Glucose 122 mg/dL (80-110); HEMOLYSIS 19 (0-50); Potassium 4.3 mmol/L (3.4-5.1); Sodium 138 mmol/L (137-145)
== END 2021-07-23 23:21 | disposition home or self-care (01) ==
PROVIDERS: Emergency Provider Emergency Medicine; PCP Student in an Organized Health Care Education/Training Program
DX: N93.9 Abnormal uterine and vaginal bleeding, unspecified (principal)
CPT/HCPCS: 76830; 76856; 80048; 85025; 99284

== ENCOUNTER → 2021-10-07 14:26 | Outpatient (CLI) | payer MEDICARE, OTHER, SELFPAY ==
[2021-10-07 16:04] LABS: TSH w/ Reflex to FT4 2.19 uIU/mL (0.47-4.68)
[2021-10-08 18:13] LABS: Tissue Transglutaminase IgA 3 U/mL (0-3); Tissue Transglutaminase IgG 6 U/mL (0-5)
== END ==
PROVIDERS: PCP Student in an Organized Health Care Education/Training Program; Referring Provider Student in an Organized Health Care Education/Training Program; Visit Provider Student in an Organized Health Care Education/Training Program
DX: E03.9 Hypothyroidism, unspecified (principal); K52.9 Noninfective gastroenteritis and colitis, unspecified
CPT/HCPCS: 36415; 83516; 84443

== ENCOUNTER → 2021-10-11 09:35 | Outpatient (CLI) | payer MEDICARE, OTHER, SELFPAY ==
[2021-10-11 12:52] LABS: Clostridium Difficile Tox PCR Negative for C. diff (Negative)
[2021-10-14 16:18] LABS: Calprotectin, Stool 121 ug/g (0-120)
== END ==
PROVIDERS: PCP Student in an Organized Health Care Education/Training Program; Referring Provider Student in an Organized Health Care Education/Training Program; Visit Provider Student in an Organized Health Care Education/Training Program
DX: E03.9 Hypothyroidism, unspecified (principal); K52.9 Noninfective gastroenteritis and colitis, unspecified
CPT/HCPCS: 83993; 87045; 87493; 87899

== ENCOUNTER → 2021-12-07 15:39 | Outpatient (CLI) | payer MEDICARE, OTHER, SELFPAY ==
--- NOTE | 2021-12-07 | DI.RAD.S_ITS ---
PROCEDURE: XR ACUTE ABDOMEN SERIES INDICATIONS: ALTERED BOWEL FUNCTION, INCONTINENCE OF FECES TECHNIQUE: One view chest and two views of the abdomen were acquired. COMPARISON: None. FINDINGS: Surgical changes and devices: None. Chest: Lungs are clear. Heart size is normal. No pleural effusions. No pneumoperitoneum. Abdomen: Air-filled loops of small bowel are seen throughout the abdomen. Increased stool in the left colon. Bones: No suspicious bony lesions. IMPRESSION: Increased stool in the left colon consistent with constipation and diffusely distended air-filled loops of small bowel. Dictated by: Tom Mario M.D. on 12/07/2021 at 16:46 Approved by: Tom Mario M.D. on 12/07/2021 at 16:48
== END ==
PROVIDERS: PCP Student in an Organized Health Care Education/Training Program; Referring Provider Internal Medicine Gastroenterology; Visit Provider Internal Medicine Gastroenterology
DX: R19.8 Other specified symptoms and signs involving the digestive system and abdomen (principal); R15.9 Full incontinence of feces
CPT/HCPCS: 74022

== ENCOUNTER → 2022-06-15 14:14 | Outpatient (CLI) | payer MEDICARE, OTHER, SELFPAY ==
--- NOTE | 2022-06-15 | DI.US.S_ITS ---
PROCEDURE: US SOFT TISSUE HEAD AND NECK INDICATIONS: MASS ON BACK OF HEAD; MASS LEFT HIP TECHNIQUE: Real-time scanning was performed of the neck region of interest, with image documentation. COMPARISON: None. FINDINGS: A 3.0 x 1.4 by 5.6 cm circumscribed lesion is seen corresponding to the palpable area of concern at the posterior aspect of the head. Echogenicity is mildly heterogeneous but is predominantly isoechoic to fat. No increased internal vascularity is seen. IMPRESSION: Circumscribed 5.6 cm mass corresponding to the palpable area of concern, which may represent a lipoma although other benign or malignant soft tissue masses are not excluded. Recommend clinical correlation. Contrast enhanced MRI or CT could be performed for further evaluation if indicated clinically. Approved by: Los [place] M.D. on 06/15/2022 at 20:33
--- NOTE | 2022-06-15 | DI.US.S_ITS ---
PROCEDURE: US ABDOMEN LIMITED INDICATIONS: MASS LEFT UPPER HIP TECHNIQUE: Real-time focused scanning was performed of the abdomen, with image documentation. COMPARISON: None. FINDINGS: Mild subcutaneous soft tissue edema is seen corresponding to the palpable area of concern. No focal soft tissue mass is seen. IMPRESSION: Mild nonspecific subcutaneous edema is seen at the area of clinical concern. No soft tissue mass is seen. Approved by: Los [place] M.D. on 06/15/2022 at 20:35
== END ==
PROVIDERS: PCP Student in an Organized Health Care Education/Training Program; Referring Provider Dermatology; Visit Provider Dermatology
DX: L98.9 Disorder of the skin and subcutaneous tissue, unspecified (principal); R22.0 Localized swelling, mass and lump, head; R22.2 Localized swelling, mass and lump, trunk
CPT/HCPCS: 76536; 76705; 76882

== ENCOUNTER → 2022-08-18 15:08 | Outpatient (CLI) | payer MEDICARE, OTHER, SELFPAY ==
[2022-08-18 16:28] LABS: Alanine Aminotransferase 29 IU/L (<35); Albumin 4.5 g/dL (3.5-5.0); Albumin Globulin Ratio 1.6 (1.0-2.8); Alkaline Phosphatase 91 U/L (38-126); Aspartate Aminotransferase 22 IU/L (14-36); Bilirubin Total 0.8 mg/dL (0.2-1.3); Blood Urea Nitrogen 11 mg/dL (7-17); Calcium 9.8 mg/dL (8.4-10.2); Carbon Dioxide 26 mmol/L (22-32); Chloride 102 mmol/L (98-107); Cholesterol 179 mg/dL (140-199); Estimated Glomerular Filt Rate > 60 mL/min (>60); Globulin 2.9 g/dL (1.7-4.1); Glucose 114 mg/dL (80-110); HDL Cholesterol 40 mg/dL (40-60); HEMOLYSIS < 15 (0-50); LDL Cholesterol Calculated 62 mg/dL (<100); Potassium 4.4 mmol/L (3.4-5.1); Sodium 138 mmol/L (137-145); Total Protein 7.4 g/dL (6.3-8.2); Triglycerides 386 mg/dL (35-150)
[2022-08-18 16:41] LABS: Free T4, Direct Thyroxine 1.26 ng/dL (0.78-2.19)
[2022-08-19 08:44] LABS: x Labcorp Estim. Avg Glu (eAG) 105 mg/dL (.); x Labcorp Hemoglobin A1c 5.3 % (4.8-5.6)
== END ==
PROVIDERS: PCP Internal Medicine; Referring Provider Internal Medicine; Visit Provider Internal Medicine
DX: E03.9 Hypothyroidism, unspecified; E08.9 Diabetes mellitus due to underlying condition without complications; E78.5 Hyperlipidemia, unspecified; G35 Multiple sclerosis; I10 Essential (primary) hypertension
CPT/HCPCS: 36415; 80053; 80061; 83036; 84439; 84443

== ENCOUNTER → 2023-09-25 10:44 | Outpatient (CLI) | payer MEDICARE, OTHER, SELFPAY ==
[2023-09-25 12:19] LABS: Add Manual Diff / Slide Review NO; Basophils Absolute Auto 0 /uL (0-100); Basophils Percent Auto 0.7 % (0-2); Eosinophils Absolute Auto 100 /uL (0-450); Eosinophils Percent Auto 1.7 % (2-4); Hematocrit 35.7 % (36-46); Hemoglobin 12.1 g/dL (12.0-16.0); Lymphocytes Absolute Auto 1800 /uL (1100-4500); Lymphocytes Percent Auto 34.6 % (25-40); Mean Corpuscular HGB Conc 33.9 % (30-36); Mean Corpuscular Hemoglobin 31.4 PG (26-34); Mean Corpuscular Volume 92.5 fL (80-100); Monocytes Absolute Auto 500 /uL (0-900); Monocytes Percent Auto 9.2 % (3-14); Neutrophils Absolute Auto 2700 /uL (1500-7000); Neutrophils Percent Auto 53.8 % (50-75); Platelet Count 228 X10^3/uL (150-400); Red Blood Cell Count 3.86 X10^6/uL (4.0-5.2); Red Cell Distribution Width 15.4 % (11.6-14.8); White Blood Cell Count 5.1 X10^3/uL (4.5-11.0)
[2023-09-25 14:48] LABS: Alanine Aminotransferase 30 IU/L (<35); Albumin 4.6 g/dL (3.5-5.0); Albumin Globulin Ratio 1.8 (1.0-2.8); Alkaline Phosphatase 69 U/L (38-126); Aspartate Aminotransferase 23 IU/L (14-36); BUN Creatinine Ratio 20.8 (6-22); Bilirubin Total 0.8 mg/dL (0.2-1.3); Blood Urea Nitrogen 11 mg/dL (7-17); Calcium 9.2 mg/dL (8.4-10.2); Carbon Dioxide 27 mmol/L (22-32); Chloride 103 mmol/L (98-107); Estimated Glomerular Filt Rate > 60 mL/min (>60); Globulin 2.6 g/dL (1.7-4.1); Glucose 113 mg/dL (80-110); HEMOLYSIS < 15 (0-50); Potassium 4.8 mmol/L (3.4-5.1); Sodium 137 mmol/L (137-145); Total Protein 7.2 g/dL (6.3-8.2)
[2023-09-25 14:55] LABS: Free T4, Direct Thyroxine 1.19 ng/dL (0.78-2.19)
[2023-09-25 15:08] LABS: Thyroid Stimulating Hormone 1.86 uIU/mL (0.47-4.68)
== END ==
LOC: LAB 10:46
PROVIDERS: PCP Internal Medicine; Referring Provider Internal Medicine; Visit Provider Internal Medicine
DX: E03.9 Hypothyroidism, unspecified (principal); I10 Essential (primary) hypertension; R94.5 Abnormal results of liver function studies
CPT/HCPCS: 36415; 80053; 84439; 84443; 85025

== ENCOUNTER → 2023-12-22 13:35 | Outpatient (CLI) | payer MEDICARE, OTHER, SELFPAY ==
[2023-12-22 15:14] LABS: Appearance Urine UA CLEAR; Bilirubin Urine UA NEGATIVE (NEGATIVE); Color Urine UA YELLOW; Glucose Urine UA NEGATIVE (Negative); Ketones Urine UA NEGATIVE (NEGATIVE); Leukocyte Esterase Urine UA 1+ (NEGATIVE); Nitrite Urine UA NEGATIVE (Negative); Occult Blood Urine UA 1+ (Negative); Protein Urine UA NEGATIVE (Negative); Urobilinogen Urine UA 0.2 E.U./dL (0.2)
[2023-12-22 15:18] LABS: pH Urine UA 7.5 (4.5-8.0)
[2023-12-22 15:30] LABS: RBC Urine 0-1/HPF (0-5/HPF); Urine Volume 10mL (spun)
[2023-12-22 15:31] LABS: Bacteria Urine Moderate (10-30); Culture Indicated Urine Specimen Cultured; Squamous Epithelial Cell Urine 0-1 /HPF (0-5/HPF); WBC Urine 5-10/HPF (0-5/HPF)
== END ==
PROVIDERS: PCP Internal Medicine; Referring Provider Internal Medicine; Visit Provider Internal Medicine
DX: R39.89 Other symptoms and signs involving the genitourinary system (principal); R82.90 Unspecified abnormal findings in urine; N32.89 Other specified disorders of bladder
CPT/HCPCS: 81001; 87077; 87086; 87186

== ENCOUNTER → 2024-09-20 14:06 | Outpatient (CLI) | payer MEDICARE, OTHER, SELFPAY ==
[2024-09-20 15:05] LABS: Add Manual Diff / Slide Review NO; Hematocrit 34.1 % (36-46); Hemoglobin 11.8 g/dL (12.0-16.0); Lymphocytes Absolute Auto 1800 /uL (1100-4500); Mean Corpuscular HGB Conc 34.6 % (30-36); Mean Corpuscular Hemoglobin 31.1 PG (26-34); Mean Corpuscular Volume 89.9 fL (80-100); Platelet Count 231 X10^3/uL (150-400)
[2024-09-20 15:26] LABS: Alanine Aminotransferase 26 IU/L (<35); Albumin 4.4 g/dL (3.5-5.0); Albumin Globulin Ratio 2.1 (1.0-2.8); Alkaline Phosphatase 70 U/L (38-126); Blood Urea Nitrogen 11 mg/dL (7-17); Calcium 9.0 mg/dL (8.4-10.2); Carbon Dioxide 28 mmol/L (22-32); Chloride 98 mmol/L (98-107); Estimated Glomerular Filt Rate > 60 mL/min (>60); Globulin 2.1 g/dL (1.7-4.1); Glucose 115 mg/dL (70-99); HEMOLYSIS < 15 (0-50); Potassium 4.3 mmol/L (3.4-5.1); Sodium 133 mmol/L (137-145); Total Protein 6.5 g/dL (6.3-8.2)
[2024-09-20 15:43] LABS: Free T4, Direct Thyroxine 1.05 ng/dL (0.78-2.19)
[2024-09-20 15:58] LABS: Thyroid Stimulating Hormone 1.77 uIU/mL (0.47-4.68)
== END ==
PROVIDERS: PCP Internal Medicine; Referring Provider Internal Medicine; Visit Provider Internal Medicine
DX: I10 Essential (primary) hypertension (principal); G35 Multiple sclerosis; E03.9 Hypothyroidism, unspecified; E78.5 Hyperlipidemia, unspecified
CPT/HCPCS: 36415; 80053; 84439; 84443; 85025

== ENCOUNTER → 2024-11-20 15:10 | Outpatient (CLI) | payer MEDICARE, OTHER, SELFPAY | PROVIDERS: PCP Internal Medicine; Visit Provider Physician Assistant | DX: N30.01 Acute cystitis with hematuria (principal) | CPT/HCPCS: 87086 ==

== ENCOUNTER → 2024-11-20 15:38 | Outpatient (CLI) | payer MEDICARE, OTHER, SELFPAY ==
[2024-11-20 16:47] LABS: Add Manual Diff / Slide Review NO; Hematocrit 35.2 % (36-46); Hemoglobin 12.0 g/dL (12.0-16.0); Lymphocytes Absolute Auto 1800 /uL (1100-4500); Mean Corpuscular HGB Conc 34.0 % (30-36); Mean Corpuscular Hemoglobin 30.7 PG (26-34); Mean Corpuscular Volume 90.3 fL (80-100); Platelet Count 261 X10^3/uL (150-400)
[2024-11-20 17:16] LABS: Alanine Aminotransferase 27 IU/L (<35); Albumin 4.4 g/dL (3.5-5.0); Albumin Globulin Ratio 1.7 (1.0-2.8); Alkaline Phosphatase 75 U/L (38-126); Blood Urea Nitrogen 15 mg/dL (7-17); Calcium 9.4 mg/dL (8.4-10.2); Carbon Dioxide 28 mmol/L (22-32); Chloride 99 mmol/L (98-107); Estimated Glomerular Filt Rate > 60 mL/min (>60); Globulin 2.6 g/dL (1.7-4.1); Glucose 114 mg/dL (70-99); HEMOLYSIS < 15 (0-50); Potassium 4.7 mmol/L (3.4-5.1); Sodium 135 mmol/L (137-145); Total Protein 7.0 g/dL (6.3-8.2)
== END ==
PROVIDERS: PCP Internal Medicine; Referring Provider Physician Assistant; Visit Provider Physician Assistant
DX: N39.0 Urinary tract infection, site not specified (principal)
CPT/HCPCS: 36415; 80053; 85025

== ENCOUNTER 2024-11-21 09:41 | Emergency (ER) | payer MEDICARE, OTHER, SELFPAY ==
[2024-11-21] VITALS (10 sets, daily range): BP systolic 127–178; BP diastolic 66–82; PULSE 67–80; RESP 14; TEMP 36.6; O2SAT 96–98; BMI 32.3
--- NOTE | 2024-11-21 09:57 | ED.FEMALEGU ---
HPI - Female Genitourinary General Chief complaint: Urogenital-Female Stated complaint: Blood in urine Time Seen by Provider: 11/21/24 09:56 Source: patient and EMS Mode of arrival: EMS Limitations: no limitations History of Present Illness HPI Narrative: 79-year-old female history of MS, dyslipidemia, hypertension, bed bound after femur fracture 10 years prior with chronic indwelling catheter. Patient noted some bladder spasm in the last day was seen at Dr. Stout office had what sounds like a positive urine test and was started on cephalexin 500 mg p.o. q.i.d.. Patient has a only had 1 or 2 doses. She is normally on Macrobid 100 mg q.h.s. but held this secondary to the new change. Patient states she noticed hematuria in the last several days which is what prompted her initial evaluation. She states it has not improved. She has not had any fevers or chills. No chest pain or shortness of breath. Noted some bladder spasm last night but none today. States she has chronic constipation secondary to her AMS but has had bowel movements. Denies any flank pain. Patient states she has not had issues with hematuria in the past. She does get her catheter changed out monthly. States she used to have urinary infections frequently but that has improved. She has not on aspirin, atorvastatin, baclofen, folic acid, carvedilol, cholecalciferol, levothyroxine, meloxicam, and topical ketoconazole and topical metronidazole as well as mupirocin daily. She denies any major surgeries. Notes she had femur fracture 10 years ago but did not pursue surgical repair. No tobacco, no regular alcohol no recreational drugs. She lives home with her . She notes he is on his way to go has a colonoscopy. Related Data Home Medications ?Medication ?Instructions ?Recorded ?Confirmed ASPIRIN (#ASPIR 81) 81 mg PO Q DAY ##0 07/21/11 11/20/24 CA PANTOTHENATE/FOLIC ACID/VIT 1 tab PO Q DAY ##0 07/21/11 11/20/24 (MULTIVITAMIN) polyethylene glycol 3350 17 17 gm PO PRN ##0 07/21/11 11/20/24 gram/dose oral powder (Miralax) Fish Oil (#OMEGA-3 FISH OIL) 1,200 mg PO QDAY ##0 10/26/11 11/20/24 cholecalciferol (vitamin D3) 125 125 mcg PO DAILY 08/18/22 11/20/24 mcg (5,000 unit) capsule Previous Rx's ?Medication ?Instructions ?Recorded Catheter Flush See Rx Instructions .Route 05/25/22 .COMPLEX #1 applic metronidazole 0.75 % topical cream 1 applic topical BID PRN Rosacea 03/21/24 #45 grams atorvastatin 40 mg tablet (Lipitor) 40 mg PO Q DAY #90 tabs 05/09/24 carvedilol 25 mg tablet 25 mg PO BID #180 tabs 05/09/24 levothyroxine 50 mcg tablet 50 mcg PO QAM #90 tabs 05/09/24 baclofen 20 mg tablet 20 mg PO BID #180 tabs 08/01/24 mupirocin 2 % topical ointment 1 applic topical BID #30 grams 08/01/24 nitrofurantoin 100 mg PO BEDTIME #90 caps 08/01/24 monohydrate/macrocrystals 100 mg capsule meloxicam 15 mg tablet 15 mg PO DAILY #90 tabs 09/24/24 ketoconazole 2 % shampoo 1 applic topical 3XW #360 mL 10/04/24 cephalexin 500 mg capsule 500 mg PO QID #40 caps 11/20/24 ciprofloxacin HCl 500 mg tablet 500 mg PO BID #20 tabs 11/21/24 Allergies Allergy/AdvReac Type Severity Reaction Status Date / Time No Known Drug Allergies Allergy Verified 11/21/24 09:46 Review of Systems Review of Systems ROS Unobtainable: All systems reviewed & are unremarkable except as noted in HPI and below Patient History Medical History Anemia of chronic disease Atypical ductal hyperplasia of right breast Basal cell carcinoma Impaired glucose tolerance Chronic diarrhea Wheelchair confinement status Chronic indwelling Sanabria catheter Essential hypertension Hx of staphylococcal infection (2014) Obesity Femur fracture, left (08/2014) Hyperlipidemia Hypertension Multiple sclerosis (1977) Shoulder pain Chickenpox Measles Mumps Urinary incontinence (~1999) Frequent UTI (1967) Hypothyroidism Chronic constipation (08/19/16) Abnormal liver function tests (11/08/13) Multiple sclerosis, primary progressive Hyperlipidemia Acquired hypothyroidism Stricture of sigmoid colon (~2016) Small bowel obstruction Surgical History Status post cone biopsy of cervix Status post loop electrosurgical excision procedure (LEEP) of cervix Status post colonoscopy Family History Brother Stroke Child Age: 55 Hypertension High cholesterol Sister Age: 89 Breast cancer Sister Age: 52 High cholesterol Father Cancer Mother No problems noted. Exam Narrative Exam Narrative: GENERAL: Alert and oriented x three, mild distress HEENT: Head normocephalic, atraumatic, EOMI, pupils reactive, face symmetric, moist mucous membranes NECK: Supple, full range of motion CARDIOVASCULAR: Regular rate and rhythm without murmurs, rubs or gallops. RESPIRATORY: Breath sounds equal bilaterally, no wheezes rales or rhonchi. ABDOMEN: Soft, nontender. Mildly distended. Normoactive bowel sounds all 4 quadrants. No guarding or rebound, rigidity, no mass : No CVA tenderness, indwelling Sanabria catheter with dark red urine no large clots appears to be draining. EXTREMITIES: Normal range of motion, no clubbing or edema. Neurovascularly intact NEUROLOGICAL: Cranial nerves II through XII grossly intact. Moving all extremities SKIN: Warm, dry, no petechiae, no rashes or lesions. Initial Vital Signs Initial Vital Signs: Vital Signs Temperature 97.9 F 11/21/24 09:34 Pulse Rate 80 11/21/24 09:34 Respiratory Rate 14 11/21/24 09:34 Blood Pressure 177/82 H 11/21/24 09:34 Pulse Oximetry 98 11/21/24 09:34 Oxygen Delivery Method Room Air 11/21/24 09:34 Course Orders Ordered: ED Orders 11/21/24 10:06 CT kidney ureter bladder (KUB) Stat 11/21/24 10:12 Ictotest Urine Stat UA Complete [Urinalysis and Microscopic] Stat Urine Culture Stat 11/21/24 10:30 BMP [Basic Metabolic Panel] Stat CBC Auto Diff [Complete Blood Count AUTO DIFF] Stat Discontinued Medications Ciprofloxacin (Ciprofloxacin 250 Mg Tablet) 500 mg PO NOW ONE Stop: 11/21/24 11:30 Last Admin: 11/21/24 11:35 Dose: 500 mg Documented By: MPO Vital Signs Vital signs: Vital Signs - 8 hr 11/21/24 10:30 11/21/24 10:31 11/21/24 10:31 Pulse Rate 77 75 Blood Pressure 150/66 H Pulse Oximetry 97 97 11/21/24 11:00 11/21/24 11:00 11/21/24 11:30 Pulse Rate 72 74 Blood Pressure 178/74 H Pulse Oximetry 98 97 11/21/24 11:31 11/21/24 11:31 11/21/24 12:00 Pulse Rate 74 69 Blood Pressure 127/69 Pulse Oximetry 96 98 11/21/24 12:01 11/21/24 12:01 Pulse Rate 67 Blood Pressure 167/76 H Pulse Oximetry 98 MDM - Female Genitourinary Lab Data 11/21/24 10:30 11/21/24 10:30 Labs: Lab Results 11/21/24 11/21/24 Range/Units 10:12 10:30 WBC 5.9 (4.5-11.0) X10^3/uL RBC 3.96 L (4.0-5.2) X10^6/uL Hgb 12.1 (12.0-16.0) g/dL Hct 35.6 L (36-46) % MCV 90.0 (80-100) fL MCH 30.6 (26-34) PG MCHC 34.0 (30-36) % RDW 15.3 H (11.6-14.8) % Plt Count 242 (150-400) X10^3/uL Neut % (Auto) 65.7 (50-75) % Lymph % (Auto) 23.7 L (25-40) % [place] % (Auto) 7.5 (3-14) % Eos % (Auto) 2.3 (2-4) % Baso % (Auto) 0.8 (0-2) % Neut # (Auto) 3900 (7082-7049) /uL Lymph # (Auto) 1400 (1782-5819) /uL [place] # (Auto) 400 (0-900) /uL Eos # (Auto) 100 (0-450) /uL Baso # (Auto) 0 (0-100) /uL Sodium 130 L (137-145) mmol/L Potassium 4.1 (3.4-5.1) mmol/L Chloride 97 L (98-107) mmol/L Carbon Dioxide 23 (22-32) mmol/L BUN 10 (7-17) mg/dL Creatinine 0.44 L (0.52-1.04) mg/dL Estimated GFR > 60 (>60) mL/min BUN/Creatinine Ratio 22.7 H (6-22) Glucose 137 H (70-99) mg/dL Calcium 9.0 (8.4-10.2) mg/dL Urine Color Red Urine Appearance Cloudy Urine pH TNP Ur Specific [place] TNP Urine Protein TNP Urine Glucose (UA) TNP Urine Ketones TNP Urine Occult Blood TNP Urine Nitrate TNP Urine Bilirubin TNP Ur Bilirubin Confirm Negative (Negative) Urine Urobilinogen TNP Ur Leukocyte Esterase TNP Urine RBC 30-100/hpf H (0-5/HPF) Urine WBC 30-100/hpf H (0-5/HPF) Ur Squamous Epith Cells 1-5 /hpf (0-5/HPF) Urine Bacteria Moderate (10-30) H (None) Ur Culture Indicated? Specimen cultured Vol Urine Centrifuged 10ml (spun) MDM Narrative Medical decision making narrative: Patient does have a UA from 11/20/2024 shows a 3+ protein 2+ blood positive for nitrates positive for bilirubin 3+ leuks. Patient has a urine culture pending from yesterday, read notes very early growth, culture. too young for workup we incubated. Labs show white count of 5.9 hemoglobin of 12.1 consistent with priors platelets of 242. Chemistries shows sodium 130 chloride 97 otherwise appropriate electrolytes creatinine 0.44 glucose is 137. Patient has slight hyponatremia, hemoglobin is consistent with prior. CT KUB no renal stones, ureteral stones or hydronephrosis, clot present in the bladder questionable mild bladder wall thickening. Elongated redundant colon with a very large diffuse fecal load. Urinalysis today shows 3200 red cells side 100 white cells 1-5 squamous moderate bacteria was sent for culture. Spoke with Urology Dr. Mann, he is aware of patient had phone consultation has been reviewing her information. Does not feel if it is currently draining well does not have to be irrigated at this time. We discussed prior urine cultures shows Pseudomonas but do look like they were floor: Sensitive we will switch her oral antibiotic. She can follow up outpatient as needed and to return emergently if she has any blockage of her catheter. Discharge Plan Departure Patient Disposition: Home Clinical Impression: Hematuria, Chronic indwelling Sanabria catheter, UTI (urinary tract infection) Instructions: DI for Urinary Tract Infection (UTI) Activity Restrictions/Additional Instructions: Based on your prior urine cultures I would recommend changing your antibiotic. Please stop the cephalexin(keflex). A prescription for a new antibiotic was sent to [facility] in [place]. I did speak with urology today, they are aware of you. Call to set up follow up if they have not reached out. Please return for fevers, new abdominal back or flank pain, if you are catheter becomes blocked or is not draining, if you are having any vomiting, or other new or concerning changes. Prescriptions: New ciprofloxacin HCl 500 mg tablet 500 mg PO BID Qty: 20 0RF No Action ASPIRIN (#ASPIR 81) 81 mg PO Q DAY Qty: 0 CA PANTOTHENATE/FOLIC ACID/VIT (MULTIVITAMIN) 1 tab PO Q DAY Qty: 0 polyethylene glycol 3350 [Miralax] 119 GM powder 17 gm PO PRN Qty: 0 Fish Oil (#OMEGA-3 FISH OIL) 1,200 mg PO QDAY Qty: 0 Catheter Flush See Rx Instructions .ROUTE .COMPLEX Qty: 1 0RF Rx Instructions: may flush urinary catheter PRN for urinary burning sensation; metronidazole 0.75 % cream 1 applic topical BID PRN (Reason: Rosacea) Qty: 45 3RF carvedilol 25 mg tablet 25 mg PO BID Qty: 180 3RF Rx Instructions: must administer with a meal/food atorvastatin [Lipitor] 40 mg tablet 40 mg PO Q DAY Qty: 90 3RF levothyroxine 50 mcg tablet 50 mcg PO QAM Qty: 90 3RF baclofen 20 mg tablet 20 mg PO BID Qty: 180 3RF nitrofurantoin monohyd/m-cryst 100 mg capsule 100 mg PO BEDTIME Qty: 90 3RF Rx Instructions: must administer with a meal/food mupirocin 2 % ointment 1 applic topical BID Qty: 30 6RF ketoconazole 2 % shampoo 1 applic topical 3XW Qty: 360 4RF cephalexin 500 mg capsule 500 mg PO QID Qty: 40 0RF cholecalciferol (vitamin D3) 125 mcg (5,000 unit) capsule 125 mcg PO DAILY meloxicam 15 mg tablet 15 mg PO DAILY Qty: 90 3RF Referrals: Joey Mann DO [Physician, Urology] Juanjo Stout MD [Primary Care Provider, Internal Medicine] Stand Alone Forms: Patient Portal/API
--- NOTE | 2024-11-21 10:06 | DI.CT.S_ITS ---
PROCEDURE: CT KIDNEY URETER BLADDER (KUB) INDICATIONS: hematuria, recent UTI, chronic indwelling cathter, hx MS TECHNIQUE: Axial sections were acquired from the lung bases to the pubic symphysis. Coronal and sagittal reformats were performed. For radiation dose reduction, the following was used: automated exposure control, adjustment of mA and/or kV according to patient size. COMPARISON: None. FINDINGS: Image quality: Diagnostic. Lower Chest: No significant findings. URINARY: Right Kidney: No stones or hydronephrosis. Right Ureter: No hydroureter. Left Kidney: No stones or hydronephrosis. Left Ureter: No hydroureter. Bladder: Clots are present in the bladder. A Sanabria catheter is in place. Question mild wall thickening. ABDOMEN: Liver: No contour-deforming solid mass. Gallbladder: No radiopaque gallstones or wall thickening. Biliary ducts: No biliary dilation. Pancreas: No ductal dilation. Spleen: Size is within normal limits. Adrenal Glands: No adrenal nodules. Stomach and Bowel: Normal colonic caliber, without significant wall thickening. Elongated redundant colon with very large diffuse fecal load. No wall thickening. Normal appendix. Peritoneum: No abnormal intraperitoneal fluid. No free air. Ventral Wall: No hernia. Abdominal Nodes: No enlarged retroperitoneal or mesenteric lymph nodes. Vessels: Aorta and inferior vena cava are normal in size. PELVIS: Pelvic Organs: Unremarkable. Pelvic Nodes: Unremarkable. Miscellaneous: No inguinal hernias are seen. Bones: Unremarkable. IMPRESSION: 1. No renal stones, ureteral stones, or hydronephrosis. 2. Clot present in the bladder. Question mild bladder wall thickening. 3. Elongated redundant colon with very large diffuse fecal load. Dictated by: Ed Myers M.D. on 11/21/2024 at 10:57 Approved by: Ed Myers M.D. on 11/21/2024 at 11:01
[2024-11-21 10:23] LABS: Appearance Urine UA CLOUDY
[2024-11-21 10:35] LABS: Culture Indicated Urine Specimen Cultured
[2024-11-21 10:38] LABS: Add Manual Diff / Slide Review NO; Hematocrit 35.6 % (36-46); Hemoglobin 12.1 g/dL (12.0-16.0); Lymphocytes Absolute Auto 1400 /uL (1100-4500); Mean Corpuscular HGB Conc 34.0 % (30-36); Mean Corpuscular Hemoglobin 30.6 PG (26-34); Mean Corpuscular Volume 90.0 fL (80-100); Platelet Count 242 X10^3/uL (150-400)
[2024-11-21 10:39] LABS: Color Urine UA RED
[2024-11-21 10:46] LABS: Ictotest Urine Negative (Negative)
[2024-11-21 10:55] LABS: Blood Urea Nitrogen 10 mg/dL (7-17); Calcium 9.0 mg/dL (8.4-10.2); Carbon Dioxide 23 mmol/L (22-32); Chloride 97 mmol/L (98-107); Estimated Glomerular Filt Rate > 60 mL/min (>60); Glucose 137 mg/dL (70-99); HEMOLYSIS < 15 (0-50); Potassium 4.1 mmol/L (3.4-5.1); Sodium 130 mmol/L (137-145)
[2024-11-21] MEDS: CIPROFLOXACIN 250 MG TABLET 500 MG PO (11:35)
== END 2024-11-21 12:33 | disposition home or self-care (01) ==
PROVIDERS: Emergency Provider Emergency Medicine; PCP Internal Medicine
DX: R31.9 Hematuria, unspecified (principal); N39.0 Urinary tract infection, site not specified; Z97.8 Presence of other specified devices
CPT/HCPCS: 74176; 80048; 81001; 85025; 87077; 87086; 87186; 99283; 99284

== ENCOUNTER 2024-11-22 12:34 | Emergency (ER) | payer MEDICARE, OTHER, SELFPAY ==
[2024-11-22 12:38] VITALS: BP 190/84; PULSE 81; O2SAT 97
[2024-11-22 12:40] VITALS: BP 176/78; PULSE 80; O2SAT 98
[2024-11-22 12:41] VITALS: BP 190/84; PULSE 80; RESP 20; TEMP 36.6; O2SAT 97; BMI 32.3
--- NOTE | 2024-11-22 13:27 | ED.FEMALEGU ---
HPI - Female Genitourinary General Chief complaint: Urogenital-Female Stated complaint: Blood in guido-pt here yesterday for same Time Seen by Provider: 11/22/24 12:52 Source: patient and EMS Mode of arrival: EMS History of Present Illness HPI Narrative: A 79-year-old female with multiple sclerosis and chronic indwelling Guido catheter presenting with gross hematuria and a blocked catheter. She was seen by her primary care provider on the 20 of November and started on cephalexin for urinary tract infection and she had hematuria at that time. Subsequently returned to the emergency department on , had gross hematuria again urine culture results from a 10th her showing Gram-negative bacilli without identification or sensitivities. Patient was switched from cephalexin to Cipro yesterday. The patient is on 81 mg of aspirin daily, she has continued to take that she is not otherwise anticoagulated. With the irrigation here in the department the catheter is now flowing again. The patient is not having fevers shaking chills vomiting or abdominal pain. Related Data Home Medications ?Medication ?Instructions ?Recorded ?Confirmed ASPIRIN (#ASPIR 81) 81 mg PO Q DAY ##0 07/21/11 11/20/24 CA PANTOTHENATE/FOLIC ACID/VIT 1 tab PO Q DAY ##0 07/21/11 11/20/24 (MULTIVITAMIN) polyethylene glycol 3350 17 17 gm PO PRN ##0 07/21/11 11/20/24 gram/dose oral powder (Miralax) Fish Oil (#OMEGA-3 FISH OIL) 1,200 mg PO QDAY ##0 10/26/11 11/20/24 cholecalciferol (vitamin D3) 125 125 mcg PO DAILY 08/18/22 11/20/24 mcg (5,000 unit) capsule Previous Rx's ?Medication ?Instructions ?Recorded Catheter Flush See Rx Instructions .Route 05/25/22 .COMPLEX #1 applic metronidazole 0.75 % topical cream 1 applic topical BID PRN Rosacea 03/21/24 #45 grams atorvastatin 40 mg tablet (Lipitor) 40 mg PO Q DAY #90 tabs 05/09/24 carvedilol 25 mg tablet 25 mg PO BID #180 tabs 05/09/24 levothyroxine 50 mcg tablet 50 mcg PO QAM #90 tabs 05/09/24 baclofen 20 mg tablet 20 mg PO BID #180 tabs 08/01/24 mupirocin 2 % topical ointment 1 applic topical BID #30 grams 08/01/24 nitrofurantoin 100 mg PO BEDTIME #90 caps 08/01/24 monohydrate/macrocrystals 100 mg capsule meloxicam 15 mg tablet 15 mg PO DAILY #90 tabs 09/24/24 ketoconazole 2 % shampoo 1 applic topical 3XW #360 mL 10/04/24 cephalexin 500 mg capsule 500 mg PO QID #40 caps 11/20/24 ciprofloxacin HCl 500 mg tablet 500 mg PO BID #20 tabs 11/21/24 Allergies Allergy/AdvReac Type Severity Reaction Status Date / Time No Known Drug Allergies Allergy Verified 11/22/24 12:42 Patient History Medical History Anemia of chronic disease Atypical ductal hyperplasia of right breast Basal cell carcinoma Impaired glucose tolerance Chronic diarrhea Wheelchair confinement status Chronic indwelling Guido catheter Essential hypertension Hx of staphylococcal infection (2014) Obesity Femur fracture, left (08/2014) Hyperlipidemia Hypertension Multiple sclerosis (1977) Shoulder pain Chickenpox Measles Mumps Urinary incontinence (~1999) Frequent UTI (1967) Hypothyroidism Chronic constipation (08/19/16) Abnormal liver function tests (11/08/13) Multiple sclerosis, primary progressive Hyperlipidemia Acquired hypothyroidism Stricture of sigmoid colon (~2016) Small bowel obstruction Surgical History Status post cone biopsy of cervix Status post loop electrosurgical excision procedure (LEEP) of cervix Status post colonoscopy Family History Brother Stroke Child Age: 55 Hypertension High cholesterol Sister Age: 89 Breast cancer Sister Age: 52 High cholesterol Father Cancer Mother No problems noted. Alcohol type: wine Exam Initial Vital Signs Initial Vital Signs: Vital Signs Temperature 97.8 F 11/22/24 12:41 Pulse Rate 80 11/22/24 12:41 Respiratory Rate 20 11/22/24 12:41 Blood Pressure 190/84 H 11/22/24 12:41 Pulse Oximetry 97 11/22/24 12:41 Oxygen Delivery Method Room Air 11/22/24 12:41 Obese, appears to be in no distress afebrile Resp Other: Normal respiratory effort Cardio Other: Normal heart rate Other: Guido catheter is in place, draining blood-tinged urine at this point. Bladder is not palpably distended abdomen is soft and nontender Skin Other: Warm and dry Neuro Other: Alert and appropriate oriented Course Vital Signs Vital signs: Vital Signs - 8 hr 11/22/24 12:41 Temperature 97.8 F Pulse Rate 80 Respiratory Rate 20 Blood Pressure 190/84 H Pulse Oximetry 97 Oxygen Delivery Method Room Air MDM - Female Genitourinary MDM Narrative Medical decision making narrative: 79-year-old female with gross hematuria related to an indwelling catheter and urinary tract infection. She is afebrile and well-appearing at present, Cipro was started yesterday and there are presently no sensitivities available on her urine culture. I am going to discharge her to home, I am going to hold her aspirin, he is to get adequate fluids and return as needed for blocked catheter or fevers etc.. Discharge Plan Departure Patient Disposition: Home Clinical Impression: Hematuria due to acute cystitis Catheter-associated urinary tract infection Qualifiers: Indwelling urinary catheter type: indwelling urethral catheter Encounter type: subsequent encounter Qualified Code(s): T83.511D - Infection and inflammatory reaction due to indwelling urethral catheter, subsequent encounter Activity Restrictions/Additional Instructions: Today, we are able to get your catheter flowing with the irrigation. Make sure you are getting adequate fluids to keep your urine dilute to prevent the clot from occluding the catheter. I recommend that you hold your aspirin until the urine clears and then wait 24 hours. You can also discuss this with your primary care provider. Continue the ciprofloxacin that was started yesterday. If you are having fevers shaking chills vomiting abdominal pain or if the catheter is not draining return to the emergency department. If you feel comfortable, you can try flushing your catheter at home, it appears that you have supplies to do so. Prescriptions: No Action ASPIRIN (#ASPIR 81) 81 mg PO Q DAY Qty: 0 CA PANTOTHENATE/FOLIC ACID/VIT (MULTIVITAMIN) 1 tab PO Q DAY Qty: 0 polyethylene glycol 3350 [Miralax] 119 GM powder 17 gm PO PRN Qty: 0 Fish Oil (#OMEGA-3 FISH OIL) 1,200 mg PO QDAY Qty: 0 Catheter Flush See Rx Instructions .ROUTE .COMPLEX Qty: 1 0RF Rx Instructions: may flush urinary catheter PRN for urinary burning sensation; metronidazole 0.75 % cream 1 applic topical BID PRN (Reason: Rosacea) Qty: 45 3RF carvedilol 25 mg tablet 25 mg PO BID Qty: 180 3RF Rx Instructions: must administer with a meal/food atorvastatin [Lipitor] 40 mg tablet 40 mg PO Q DAY Qty: 90 3RF levothyroxine 50 mcg tablet 50 mcg PO QAM Qty: 90 3RF baclofen 20 mg tablet 20 mg PO BID Qty: 180 3RF nitrofurantoin monohyd/m-cryst 100 mg capsule 100 mg PO BEDTIME Qty: 90 3RF Rx Instructions: must administer with a meal/food mupirocin 2 % ointment 1 applic topical BID Qty: 30 6RF ketoconazole 2 % shampoo 1 applic topical 3XW Qty: 360 4RF cephalexin 500 mg capsule 500 mg PO QID Qty: 40 0RF cholecalciferol (vitamin D3) 125 mcg (5,000 unit) capsule 125 mcg PO DAILY meloxicam 15 mg tablet 15 mg PO DAILY Qty: 90 3RF ciprofloxacin HCl 500 mg tablet 500 mg PO BID Qty: 20 0RF Referrals: Juanjo Stout MD [Primary Care Provider, Internal Medicine] Stand Alone Forms: Patient Portal/API
[2024-11-22 13:44] VITALS: BP 163/66; PULSE 69; RESP 18; TEMP 36.6; O2SAT 96
== END 2024-11-22 14:13 | disposition home or self-care (01) ==
PROVIDERS: Emergency Provider Emergency Medicine; PCP Internal Medicine
DX: N30.01 Acute cystitis with hematuria (principal); T83.511D Infection and inflammatory reaction due to indwelling urethral catheter, subsequent encounter
CPT/HCPCS: 99281